=== PATIENT | female | born 1950 | race Caucasian/White ===

== ENCOUNTER 2021-02-21 03:09 | Outpatient (RCR) | payer OTHER, SELFPAY ==
[2021-02-21] MEDS: Heparin 500 UNITS/5 ML SYRINGE IV (10:19)
[2021-02-21] MEDS: Normal Saline Flush 10 ML SYR IVP (10:20)
[2021-02-21 10:27] LABS: Abs Immature Grans 0.02 10^3/uL (0.0-0.06); Absolute Eosinophil Count 0.47 10^3/uL (0.0-0.7); Absolute Lymphocyte Count 0.97 10^3/uL (1.2-3.4); Absolute Monocyte Count 0.57 10^3/uL (0.1-0.8); Absolute Neutrophil Count 3.73 10^3/uL (1.2-6.7); Basophils % 1.7; HCT 38.4 % (36.0-46.0); Immature Grans % 0.3; Lymphocytes % 16.6; MCH 27.9 pg (27.0-33.0); MCHC 31.3 % (32.0-36.0); MCV 89.3 fL (80-95); MPV 9.1 fL (8.0-11.0); Monocytes % 9.7; Neutrophils % 63.7; Nucleated RBC 0 %; Platelet Count 272 10^3/uL (130-400); RDW 14.4 % (11.7-14.6); RDW-SD 47.2 fL; WBC 5.86 10^3/uL (4.4-10.8)
[2021-02-21 10:32] LABS: ALT 38 U/L (14-59); AST 64 U/L (15-37); Albumin 3.1 g/dL (3.4-5.0); Alkaline Phosphatase 335 U/L (46-116); Anion Gap 9.9 mmol/L (3-11); BUN 11 mg/dL (7-18); Bilirubin, Total 0.8 mg/dL (0.2-1.0); CO2 25.1 mmol/L (21.0-32.0); Calcium 8.9 mg/dL (8.5-10.1); Chloride 102 mmol/L (98-107); Estimated GFR 55.14 (mL/min/1.73m2); Glucose 136 mg/dL (74-106); Potassium 4.4 mmol/L (3.5-5.1); Sodium 137 mmol/L (136-145)
== END 2021-03-02 23:59 | disposition home or self-care (01) ==
LOC: INF 03:09
PROVIDERS: Visit Provider Internal Medicine Medical Oncology
DX: C18.2 Malignant neoplasm of ascending colon (principal); Z45.2 Encounter for adjustment and management of vascular access device
CPT/HCPCS: 36591; 80053; 85025